=== PATIENT | male | born 1985 | race Caucasian/White ===

== ENCOUNTER 2024-06-28 23:04 | Emergency (ER) | payer OTHER ==
[~2024-06-28] VITALS: Ht 185.4 cm; Wt 108.9 kg
[2024-06-28] MEDS: NEOSPORIN OINT 0.9 GM PKT TOP ONE (23:45)
[2024-06-28] MEDS: LIDOCAINE 1% MDV 20ML VIAL SC ONE (23:45)
[2024-06-29] MEDS ORDERED: CEPH500C PO (00:27)
[2024-06-29 00:29] VITALS: BP 121/73; TEMP 98.2; O2SAT 95
[2024-06-29] MEDS: CEPHALEXIN 500 MG CAP PO ONE (00:32)
[2024-06-29] MEDS: IBUPROFEN 600MG TAB PO ONE (00:32)
== END 2024-06-29 06:17 | disposition home or self-care (01) ==
LOC: M ED 23:04
DX: S61.210A Laceration without foreign body of right index finger without damage to nail, initial encounter (principal); W26.0XXA Contact with knife, initial encounter; Y92.009 Unspecified place in unspecified non-institutional (private) residence as the place of occurrence of the external cause; Y93.9 Activity, unspecified; Y99.9 Unspecified external cause status